=== PATIENT | female | born 2000 | race Caucasian/White ===

== ENCOUNTER 2021-05-17 14:30 | Emergency (ER) | payer BC ==
[2021-05-17 14:42] VITALS: BP 104/62; PULSE 98; RESP 16; TEMP 97.7
--- NOTE | 2021-05-17 15:12 | XR ---
EXAMINATION TYPE: XR ankle complete RT DATE OF EXAM: 05/17/2021 COMPARISON: NONE HISTORY: 21-year-old female fall, twisted ankle, pain TECHNIQUE: 3 views FINDINGS: Ankle mortise is congruent with preservation of the distal tibiofibular overlap. Talar dome is intact . No acute fracture, subluxation, dislocation. Subtalar joint align. Smooth delineation to the Achill es tendon. IMPRESSION: No acute osseous abnormality seen.
--- NOTE | 2021-05-17 15:14 | ED ---
Lower Extremity Injury HPI - General Chief Complaint: Extremity Injury, Lower Stated Complaint: Right Ankle Injury Time Seen by Provider: 05/17/21 14:44 Source: patient, family, RN notes reviewed Mode of arrival: wheelchair Limitations: no limitations - History of Present Illness Initial Comments: 21-year-old female presents emergency Department with right ankle injury. Patient states she slipped on some ice twisting her ankle. She states it hurts to ambulate she had an injury similar to this 2 weeks ago. Patient states it swollen painful and lateral portion no proximal leg pain no foot tenderness. - Related Data Allergies Allergy/AdvReac Type Severity Reaction Status Date / Time No Known Allergies Allergy Verified 05/17/21 14:40 Review of Systems ROS Statement: Those systems with pertinent positive or pertinent negative responses have been documented in the HPI. ROS Other: All systems not noted in ROS Statement are negative. Past Medical History Past Medical History: No Reported History History of Any Multi-Drug Resistant Organisms: None Reported Past Surgical History: No Surgical Hx Reported Past Psychological History: No Psychological Hx Reported Smoking Status: Never smoker Past Alcohol Use History: None Reported Past Drug Use History: None Reported General Exam Limitations: no limitations General appearance: alert, in no apparent distress Head exam: Present: atraumatic, normocephalic, normal inspection Eye exam: Present: normal appearance, PERRL, EOMI. Absent: scleral icterus, conjunctival injection, periorbital swelling Respiratory exam: Present: normal lung sounds bilaterally. Absent: respiratory distress, wheezes, rales, rhonchi, stridor Cardiovascular Exam: Present: regular rate, normal rhythm, normal heart sounds. Absent: systolic murmur, diastolic murmur, rubs, gallop, clicks Extremities exam: Present: other (Right ankle moderate tenderness on lateral malleolus region, mild swelling no ecchymosis no foot times or proximal tib-fib tenderness) Neurological exam: Present: alert, oriented X3 Skin exam: Present: warm, dry, intact, normal color. Absent: rash Course Vital Signs 05/17/21 14:40 Temperature 97.7 F Pulse Rate 98 Respiratory 16 Rate Blood Pressure 104/62 O2 Sat by Pulse 99 Oximetry Medical Decision Making - Medical Decision Making 21-year-old presented for ankle injury x-rays negative patient is right ankle sprain was given stirrup Aircast. Disposition Clinical Impression: Ankle sprain Disposition: HOME SELF-CARE Condition: Stable Instructions (If sedation given, give patient instructions): Ankle Sprain (ED) Additional Instructions: Please return to the Emergency Department if symptoms worsen or any other concerns. Is patient prescribed a controlled substance at d/c from ED?: No Referrals: None,Stated [Primary Care Provider] - 1-2 days Jay Salomon MD [Medical Doctor] - 1-2 days Time of Disposition: 15:13
== END 2021-05-17 15:49 | disposition home or self-care (01) ==
LOC: EC 14:30
DX: S93.491A Sprain of other ligament of right ankle, initial encounter (principal); W00.0XXA Fall on same level due to ice and snow, initial encounter
CPT/HCPCS: 99284